=== PATIENT | male | born 1960 | race American Indian/Alaskan Native ===

== ENCOUNTER 2016-06-02 08:08 | Emergency (ER) | payer BC | END 2016-06-02 10:22 | disposition home or self-care (01) | LOC: ED 08:08 | DX: M54.9 Dorsalgia, unspecified (principal) | CPT/HCPCS: 99281 ==

== ENCOUNTER 2017-08-23 11:39 | Emergency (ER) | payer BC ==
[2017-08-23 11:53] VITALS: BP 141/85
--- NOTE | 2017-08-23 15:33 | Emergency Department Report ---
ED General Adult HPI - General Chief complaint: Extremity Injury, Lower Stated complaint: LOWER BACK PAIN Time Seen by Provider: 08/23/17 15:28 Source: patient Mode of arrival: Ambulatory Limitations: No Limitations - History of Present Illness Initial comments: Patient presents with complaint of bilateral buttocks and back of the leg pain when he wakes in the morning. Reports symptoms for greater than 1 week. Reports he takes motrin for pain. Denies trauma. Denies numbness, tingling. Denies weakness. Denies MRI evaluation. Denies back pain. Current smoker approx 1/2 ppd. Reports that he has not changed his mattress in years. -: days(s) Location: lower extremity (bilateral LE in the morning upon awakening down the back of the legs. Symptoms improve with walking ) Severity scale (0 -10): 2 Quality: aching Consistency: intermittent Improves with: movement (walking) Worsens with: none Associated Symptoms: denies other symptoms Treatments Prior to Arrival: NSAID - Related Data Previous Rx's Medication Instructions Recorded Last Taken Type methOCARBAMOL [Robaxin TAB] 500 mg PO BID PRN #14 tab 08/23/17 Unknown Rx predniSONE [Deltasone] 20 mg PO QDAY #3 tab 08/23/17 Unknown Rx Allergies Allergy/AdvReac Type Severity Reaction Status Date / Time No Known Allergies Allergy Unverified 08/23/17 11:50 ED Review of Systems ROS: Stated complaint: LOWER BACK PAIN Other details as noted in HPI Comment: All other systems reviewed and negative ED Past Medical Hx - Past Medical History Previous Medical History?: No - Surgical History Past Surgical History?: No - Social History Smoking Status: Current Every Day Smoker Substance Use Type: Alcohol - Medications Home Medications: Home Medications Medication Instructions Recorded Confirmed Last Taken Type methOCARBAMOL [Robaxin TAB] 500 mg PO BID PRN #14 tab 08/23/17 Unknown Rx predniSONE [Deltasone] 20 mg PO QDAY #3 tab 08/23/17 Unknown Rx ED Physical Exam - General Limitations: No Limitations - Other Other exam information: GENERAL: Patient in no acute distress HEAD: Normocephalic, atraumatic HEART: Regular rate and rhythm, no murmur, S1-S2 are auscultated, pulses are symmetric LUNGS: bilateral breath sounds. No wheezing, rales, rhonchi ABDOMEN: Normal bowel sounds, no tenderness, no rebound, no guarding, no masses , no CVA tenderness MUSCULOSKELETAL: Normal joint range of motion, no redness, no swelling, no tenderness NEUROLOGIC: GCS 15, Alert and Oriented x3, Cranial nerves intact, normal sensation, normal strength, normal gait, no cerebellar deficit SKIN: Skin is warm and dry, no wounds, no rashes ED Course Vital Signs 08/23/17 11:50 Temperature 98.2 F Pulse Rate 85 Respiratory 16 Rate Blood Pressure 141/85 O2 Sat by Pulse 99 Oximetry ED Medical Decision Making - Medical Decision Making Patient comfortable. Symptoms concerning for a radiculopathy versus spasms. Plan discharge with outpatient follow up. Patient agrees with plan and will return if symptoms worsen. Critical care attestation.: If time is entered above; I have spent that time in minutes in the direct care of this critically ill patient, excluding procedure time. ED Disposition Clinical Impression: Musculoskeletal pain Radiculopathy Qualifiers: Spinal region: lumbar Qualified Code(s): M54.16 - Radiculopathy, lumbar region Disposition: TO HOME OR SELFCARE Is pt being admited?: No Condition: Stable Instructions: Lumbar Radiculopathy (ED), Musculoskeletal Pain (ED) Prescriptions: methOCARBAMOL [Robaxin TAB] 500 mg PO BID PRN #14 tab PRN Reason: Spasms predniSONE [Deltasone] 20 mg PO QDAY #3 tab Referrals: PRIMARY CAREMD [Primary Care Provider] - 2-3 Days MAYURI ANTHONY MD [Staff Physician] - 2-3 Days Time of Disposition: 15:39
== END 2017-08-23 15:47 | disposition home or self-care (01) ==
LOC: ED 13:09
DX: M54.16 Radiculopathy, lumbar region (principal); F17.200 Nicotine dependence, unspecified, uncomplicated
CPT/HCPCS: 99281